=== PATIENT | male | born 1965 | race Caucasian/White ===

== ENCOUNTER 2017-08-24 22:42 | Emergency (ER) | payer MEDICAID, SELFPAY ==
[2017-08-24 22:44] VITALS: BP 112/84; PULSE 123; RESP 24; TEMP 36.8; BMI 30.9
--- NOTE | 2017-08-24 23:08 | EKG12_ITS ---
Test Reason : CONFUSION Blood Pressure : / mmHG Vent. Rate : 115 BPM Atrial Rate : 115 BPM P-R Int : 138 ms QRS Dur : 080 ms QT Int : 322 ms P-R-T Axes : 029 009 060 degrees QTc Int : 445 ms Sinus tachycardia Otherwise normal ECG Confirmed by SAUL CHAMBERS, CHRISTOPHER ([id number]), editor dictionary CARLOS GIFFORD ([id number]) on 08/26/2017 10:48:39 AM Referred By: JING Confirmed By:CHRISTOPHER HUGHES MD
--- NOTE | 2017-08-24 23:11 | RAD_ITS ---
STUDY: X-RAY CHEST REASON FOR EXAM: Male, 52 years old. Confusion. History of melanoma with metastases. TECHNIQUE: Single AP portable view of the chest. COMPARISON: 05/17/2016. FINDINGS: There are marked hypoventilatory changes. No focal infiltrate is definitely identified. There is elevation of the right hemidiaphragm.. There is no demonstrated pleural abnormality. There is borderline cardiomegaly. There is widening of the mediastinum which could be exaggerated by patient's positioning. Normal visualized pulmonary arteries. Normal visualized aortic arch and descending thoracic aorta. The thoracic spine is obscured. Normal visualized ribs, clavicles, and shoulders. There is no demonstrated abnormality of the visualized soft tissue structures of the upper abdomen. RAD/Chest 1 View (Portable) IMPRESSION: Limited examination due to marked hypoventilatory changes. Borderline cardiomegaly. No infiltrate is seen. Follow-up exam is recommended. Electronically Signed: Yousuf Langford MD at 0:12 EST Tel , Service support ,
[2017-08-25 00:20] LABS: Bacteria 0 SEEN /hpf (None Seen); Mucous, Urine 0 SEEN /hpf (<or=2+); Squamous Epithelial Cells - UA 0 SEEN /hpf (0-5)
[2017-08-25 00:25] LABS: Color, Urine Amber (Yellow); Glucose, Dipstick 50 mg/dl (Normal); Ketone-Dipstick 15 mg/dl (Negative); Leukocyte Esterase-Dipstick 25 /ul (Negative); Nitrite-Dipstick Negative (Negative); Occult Blood-Urine 150 /ul (Negative); Protein-Dipstick 30 mg/dl (Negative); Specific Gravity, Urine 1.025 (1.002-1.030); Urine Clarity Sl. Cloudy (Clear); Urine Urobilinogen 8 mg/dl (Normal); Urine pH 6.5 (5.0 - 8.0)
[2017-08-25 00:27] LABS: Urine Bilirubin Dipstick 6 mg/dL (Negative)
[2017-08-25 00:35] LABS: Fine Granular Cast- Urine 5-10 SEEN /lpf (0-5); Hyaline Cast 5-10 SEEN /lpf (0-5); Red Blood Cells-Urine 0-5 SEEN /hpf (0-5); Transitional Epithelial - Ur 0-5 SEEN /hpf (0-5); White Blood Cells 5-10 SEEN /hpf (0-5)
--- NOTE | 2017-08-25 00:51 | CT_ITS ---
CT ABDOMEN AND PELVIS WITHOUT CONTRAST REASON FOR EXAM: Male, 52 years old. History of melanoma, jaundice and liver metastases. RADIATION DOSAGE (If Supplied By Facility): CTDIvol = ( 21.68 ) mGy, DLP = ( 1435.27 ) mGycm TECHNIQUE: Transaxial images were obtained from the dome of the diaphragm to the symphysis pubis without oral contrast, and without intravenous contrast. Sagittal and coronal images were reconstructed. Individualized dose optimization techniques were used for this CT. COMPARISON: 03/30/2016. FINDINGS: The visualized portions of lung bases demonstrate linear stranding/atelectasis in both lower lungs. There are markedly enlarged lymph nodes in the left axillary region. There may be trace of pericardial effusion. Significant artifacts are seen from patient's arms by his side markedly degrading the images. The liver is prominent in size. There is diffuse fatty infiltration of the liver. Focal lesion is difficult to exclude on this exam. The liver is markedly heterogeneous. There is non-visualization of the gallbladder, which may be secondary to either contraction or a prior cholecystectomy. The spleen is markedly smaller in size in the previously measuring in this time about 11.6 cm. Previously it measured 15.3 cm. There is diffuse atrophy of the pancreas. Normal bilateral adrenal glands. Both kidneys are somewhat atrophic. There is no evidence of hydronephrosis. The stomach is not well-distended. The small bowel loops are normal in caliber. The colon diffusely narrowed and not distended. The appendix is visualized and appears normal. There is free fluid in the abdomen around the liver, spleen and mid abdomen. Normal abdominal aorta. Normal inferior vena cava. There are prominent nodes in the periaortic and pericaval region. The bladder is not distended and difficult to evaluate. There is a very small umbilical hernia containing fat. There are mild degenerative changes in the spine. CT/Abdomen/Pelvis without Cont IMPRESSION: Left axillary adenopathy. Trace of pericardial effusion. Markedly heterogeneous liver with artifacts difficult to evaluate with exam. Metastases cannot excluded. Mild hepatomegaly. Retroperitoneal adenopathy. Mild ascites. No evidence of small bowel obstruction. Diffusely narrowed colon. Electronically Signed: Yousuf Langford MD at 1:50 EST Tel , Service support ,
[2017-08-25 00:53] VITALS: BP 101/74; PULSE 116; RESP 22; O2SAT 96
[2017-08-25 01:17] LABS: Differential Indicated MANUAL DIFF; Hematocrit 53.6 % (40-54); Hemoglobin 17.7 g/dl (13.0-16.5); Mean Corpuscular Hgb 31.1 pg (27.0-32.0); Mean Corpuscular Volume 94.2 fL (80-94); Mean Platelet Vol. 11.5 fl (6.2-12.0); POSITIVE COUNT YES; POSITIVE DIFFERENTIAL NO; POSITIVE MORPHOLOGY YES; Platelet Count 255 K/mm3 (150-450); RBC Distribution Width CV 17.6 % (11.6-14.6); RBC Distribution Width SD 60.4 fl (35.1-43.9); Red Blood Count 5.69 M/mm3 (4.6-6.2); White Blood Count 21.3 K/mm3 (4.4-11.0)
[2017-08-25 01:20] LABS: Ammonia < 10.0 umol/L (11-32)
[2017-08-25 01:20] LABS: ALB/GLOB Ratio 0.8 RATIO (0.9-2.4); AST(SGOT) 590 U/L (15-37); Alanine Aminotransfer ALT/SGPT 515 U/L (16-61); Albumin, Serum 2.2 g/dL (3.2-5.0); Alkaline Phosphatase 902 U/L (45-117); Anion Gap 17 (5-15); BUN 53 mg/dL (7-18); BUN/Creat Ratio 27.9 RATIO (10-20); Calcium,Total 8.1 mg/dL (8.5-10.1); Chloride 91 mmol/L (98-107); EST Glomerular Filtration Rate 40 mL/min (>60); Est Glom Filt Rate - Afr Amer 49 mL/min (>60); Estimated Creatinine Clearance 52.57 ml/min; Globulin 2.9 g/dL (2.2-4.2); Glucose 86 mg/dL (70-110); Lipase 219 U/L (73-393); Potassium 5.1 mmol/L (3.5-5.1); Protein, Total 5.1 g/dL (6.4-8.2); Sodium Level 129 mmol/L (136-145)
[2017-08-25 01:24] LABS: Lymphocyte 6 % (19-41); Monocyte 2 % (0-10); Neutrophil-Band 1 % (0-5); Neutrophil-Segmented 91 % (47-70); Platelet Estimate A (ADEQ); Platelet Morphology COMM; Red Cell Morphology NORM C+C NORMAL (NORM C&C); Total Cells Counted 100 (MANUAL DIFF)
[2017-08-25 01:25] LABS: Absolute Lymphocyte Count 1.27 X10^3/ul (0.83-4.51); Absolute Neutrophil Count 19.6 X10^3/uL (2.0-7.7); Lymphocyte # 1.27 X10^3/ul (4.0); Neutrophil # 19.59 X10^3/uL (2.7-7.7)
[2017-08-25 02:09] VITALS: PULSE 114
--- NOTE | 2017-08-25 02:45 | ED.VISSUMM ---
- ER Visit Summary Date of Service: 08/25/17 Chief Complaint: [Altered mental status,] History of Present Illness: The patient is a 52 M [who presents the emergency department with declining mental status yellow skin. He has metastatic melanoma. He was put on hospice . He rapidly declined after that. His revoked the hospice tonight because she wanted to see if there was anything that could be done. She states that his skin has turned yellow. He is gotten much week. He is not as coherent as he was. He had been on immunotherapy until .] Physical Examination: [] Blood pressure 101/74 heart rate 125 respirations 22 pulse ox 96% temperature 98.3 Obese male in moderate distress chronically ill Scleral icterus Dry mucous membranes Regular tachycardic rhythm no murmurs Clear to auscultation bilaterally no respiratory distress Abdomen is distended firm with mild diffuse tenderness Bilateral upper extremity edema Cyanosis of the fingers and toes bilaterally, cool extremities Doppler DP pulses bilateral Lethargic but will awaken and answer questions appropriately diffusely weak with no focal deficits Test Results: [] Emergency Department Course and Treatment: [EKG is sinus tach at a rate of 115. There was difficulty obtaining an IV blood work was drawn. Bilirubin was 12.8. Liver enzymes were elevated. Had acute kidney failure with a creatinine of 1.9. Sodium was 129. White blood cell count was 21 with a neutrophilic shift. Urinalysis had glucose. There were 5-[address] of the head showed multiple hemorrhagic brain lesions. CT of the abdomen and pelvis showed heterogeneity of the liver with mild ascites. After speaking with Dr. Lott who is on-call and the and the patient and his son they would like to take him home. They would like for him to be back on hospice. Hospice will meet them at their home.] Treatment Plan: [] Disposition: [Discharge] Impression: [1. Metastatic melanoma 2. Liver failure 3. Renal failure Critical care time 30 minutes] This note was generated with [employer] dictation software. It may contain incorrect words, spelling, and punctuation that were not noted in review of the chart prior to signing ED Disposition - Plan for ED Patient: Chief Complaint: Alt LOC Referrals: Moriah Beard NP-C [Primary Care Provider] -
--- NOTE | 2017-08-25 02:51 | ED.DEP ---
ED Disposition - Plan for ED Patient: Chief Complaint: Alt LOC Instructions: Hospice: As Nears
[2017-08-25 03:06] VITALS: RESP 24
--- NOTE | 2017-08-25 23:07 | CT_ITS ---
STUDY: CT BRAIN WITHOUT CONTRAST REASON FOR EXAM: Male, 52 years old. History of melanoma with metastases. Patient is disoriented. RADIATION DOSAGE (If Supplied By Facility): CTDIvol = ( 44.99 ) mGy, DLP = ( 866.41 ) mGycm TECHNIQUE: Transaxial CT imaging of the brain was performed without administration of intravenous contrast material. Individualized dose optimization techniques were used for this CT. COMPARISON: Correlation is made with previous MRI of the brain 03/03/2017. FINDINGS: Normal soft tissue structures. Normal calvarium. There is mild cerebral atrophy with widening of the extra-axial spaces and ventricular dilatation. There again are multiple lesions in the parietal regions bilaterally, left posterior parietal region, left occipital and right frontal regions consistent with diffuse metastatic disease. Some of the lesions are hemorrhagic particularly left posterior parietal occipital regions and in the right parietal region. No shift in midline or mass effect are seen. Normal basal ganglia and thalami. Normal brainstem. Normal cerebellum. There is no intracranial hemorrhage. There are no findings of an acute ischemic infarction. There is mild mucosal thickening of the maxillary sinuses bilaterally. CT/Brain/Head without Contrast IMPRESSION: Multiple brain lesions, some of them hemorrhagic, consistent with metastatic disease as described above. Sinus disease. Electronically Signed: Yousuf Langford MD at 1:40 EST Tel , Service support ,
[2017-08-26 09:55] LABS: Pathologist Review Reviewed
== END 2017-08-25 03:18 | disposition home or self-care (01) ==
PROVIDERS: Emergency Provider Emergency Medicine; Family Provider Nurse Practitioner; PCP Nurse Practitioner
DX: C79.9 Secondary malignant neoplasm of unspecified site (principal); K72.90 Hepatic failure, unspecified without coma; N19 Unspecified kidney failure; G93.89 Other specified disorders of brain
CPT/HCPCS: 70450; 71045; 74176; 80053; 81001; 82140; 83690; 85025; 93005; 99285; J7030; A4216